=== PATIENT | male | born 1970 | race Caucasian/White ===

== ENCOUNTER 2017-06-25 20:33 | Emergency (ER) | payer BC, OTHER ==
[2017-06-25 20:46] VITALS: BP 147/82
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
[2017-06-25] MEDS ORDERED: Bacitracin Oint 1 GM U/D Packet TOP ONE (21:17)
== END 2017-06-25 21:32 | disposition home or self-care (01) ==
LOC: JP.ED 20:33
DX: S01.81XA Laceration without foreign body of other part of head, initial encounter (principal); X58.XXXA Exposure to other specified factors, initial encounter; Y99.0 Civilian activity done for income or pay
CPT/HCPCS: 99283

== ENCOUNTER 2020-04-25 22:05 | Emergency (ER) | payer OTHER, BC ==
[2020-04-25] MEDS ORDERED: ceFAZolin 1 GM in Premix Bag 1 BAG IV ONE (22:14)
[2020-04-25] MEDS ORDERED: ceFAZolin 1 GM Vial ONE (22:18)
[2020-04-25] MEDS ORDERED: Sodium Chloride 0.9% 50 ML ONE (22:19)
[2020-04-25] MEDS ORDERED: Diphtheria,Pertussis(Acell),Tetanus Vaccine 0.5 ML Syringe ONE (22:30)
[2020-04-25] MEDS ORDERED: ceFAZolin 1 GM in Sodium Chloride 0.9% 50 ML IV ONE (22:55)
[2020-04-25] MEDS ORDERED: Diphtheria,Pertussis(Acell),Tetanus Vaccine 0.5 ML Syringe IM ONE (22:56)
[2020-04-25] MEDS ORDERED: Tranexamic Acid 1,000 MG in Sodium Chloride 0.9% 50 ML IV ONE (23:01)
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
[2020-04-26 00:52] VITALS: BP 122/74; PULSE 104
== END 2020-04-26 00:25 ==
LOC: JP.ED 22:05
DX: S31.813A Puncture wound without foreign body of right buttock, initial encounter (principal); W34.00XA Accidental discharge from unspecified firearms or gun, initial encounter
CPT/HCPCS: 36415; 71260; 74177; 80053; 81001; 85025; 85610; 85730; 90471; 90715; 96365; 96367; 99284; 99285; J0690